=== PATIENT | female | born 1955 | race Caucasian/White ===

== ENCOUNTER 2017-05-24 10:13 | Emergency (ER) | payer OTHER ==
[2017-05-24 10:45] VITALS: BP 147/71
--- NOTE | 2017-05-24 10:46 | UC ---
Skin Complaint HPI - HPI Summary HPI Summary: Patient developed resness and swelling of the toes and top of the foot after walking a long time in flip flops. it has progressed over the past 2 days. - History of Current Complaint Time Seen by Provider: 05/24/17 10:35 Stated Complaint: LEFT FOOT PAIN Hx Obtained From: Patient ?: No Onset/Duration: Sudden Onset, Lasting Days Skin Exposure Onset/Duration: Days Ago Timing: Constant Onset Severity: Mild Current Severity: Moderate Character: Swelling, Redness, Painful Aggravating: Touch Alleviating: Nothing Review of Systems Constitutional: Negative Skin: Other - redness and swelling Eyes: Negative ENT: Negative Respiratory: Negative Cardiovascular: Negative Gastrointestinal: Negative Genitourinary: Negative Motor: Negative Neurovascular: Negative Musculoskeletal: Negative Neurological: Negative Psychological: Negative All Other Systems Reviewed And Are Negative: Yes PMH/Surg Hx/FS Hx/Imm Hx Previously Healthy: Yes - Family History Known Family History: Negative: Cardiac Disease, Hypertension Physical Exam Triage Information Reviewed: Yes Appearance: Well-Appearing, Well-Nourished, Pain Distress Vital Signs Reviewed: Yes Eye Exam: Normal ENT Exam: Normal Respiratory Exam: Normal Respiratory: Positive: Chest non-tender, Lungs clear, Normal breath sounds Cardiovascular Exam: Normal Cardiovascular: Positive: RRR, No Murmur, Pulses Normal Abdominal Exam: Normal Bowel Sounds: Positive: Present Musculoskeletal: Positive: Strength Intact, ROM Intact, Edema @ Neurological Exam: Normal Psychological Exam: Normal Skin: Positive: Other - great toe, top of foot and pinky toe red and swollen Course/Dx - Course Course Of Treatment: hx obtained, exam performed, meds reviewed, treated for cellulitis - Differential Diagnoses - Skin Complaint Differential Diagnoses: Cellulitis, Contact Dermatitis, Local Allergic Reaction , Urticaria - Diagnoses Provider Diagnoses: cellulitis of the left foot Discharge - Discharge Plan Condition: Stable Disposition: HOME Prescriptions: Cephalexin CAP* [Keflex CAP*] 500 mg PO TID #21 cap Patient Education Materials: Cellulitis (ED), Warm Compress or Soak (ED) Additional Instructions: 1. take the medication as prescribed. 2. Warm foot sokas 2-3 times a day for the next few days 3. Elevate foot at rest. 4. Follow up in 2 days if not improving
== END 2017-05-24 11:04 | disposition home or self-care (01) ==
LOC: UCCORT 10:13
DX: L03.116 Cellulitis of left lower limb (principal)
CPT/HCPCS: 99202; G0463